=== PATIENT | female | born 1960 | race Caucasian/White ===

== ENCOUNTER → 2017-01-06 | Outpatient (CLI) | payer MEDICARE | LOC: KOH-I 16:39 | DX: M25.511 Pain in right shoulder (principal) | CPT/HCPCS: 73030 ==

== ENCOUNTER → 2017-03-03 | Outpatient (CLI) | payer MEDICARE | LOC: EXRD 10-21 13:30 | DX: M81.0 Age-related osteoporosis without current pathological fracture (principal) | CPT/HCPCS: 77080 ==

== ENCOUNTER → 2020-12-26 | Outpatient (CLI) | payer MEDICARE ==
[2020-12-29 07:11] LABS: CCP ANTIBODIES IGG/IGA 6 units (0-19)
== END ==
LOC: LAB 12:29
PROVIDERS: Nurse Practitioner Women's Health
DX: M19.90 Unspecified osteoarthritis, unspecified site (principal); M25.50 Pain in unspecified joint; R53.83 Other fatigue; R76.8 Other specified abnormal immunological findings in serum; Z79.1 Long term (current) use of non-steroidal anti-inflammatories (NSAID)
CPT/HCPCS: 36415; 83520; 85652; 86140; 86200; 86430; 86431

== ENCOUNTER → 2021-07-28 | Outpatient (CLI) | payer MEDICARE | LOC: MAMO 07:57 | DX: Z12.31 Encounter for screening mammogram for malignant neoplasm of breast (principal) | CPT/HCPCS: 77063; 77067 ==

== ENCOUNTER → 2022-04-13 | Outpatient (CLI) | payer OTHER | LOC: KOH-I 14:57 | DX: M79.671 Pain in right foot (principal); M25.572 Pain in left ankle and joints of left foot; M25.571 Pain in right ankle and joints of right foot | CPT/HCPCS: 73610; 73630 ==